=== PATIENT | female | born 1980 | race Caucasian/White ===

== ENCOUNTER 2016-12-17 10:34 | Emergency (ER) | payer BC ==
[2016-12-17 10:46] VITALS: BP 118/76
--- NOTE | 2016-12-17 12:09 | UC ---
Throat Pain/Nasal Joe HPI - HPI Summary HPI Summary: THREE DAYS OF FEVER, CHILLS, CONGESTION, EAR ACHE. - History of Current Complaint Chief Complaint: UCGeneralIllness Stated Complaint: FLU COMPLAINT Time Seen by Provider: 12/17/16 10:59 Hx Obtained From: Patient Hx Last Menstrual Period: 12/12/16 Onset/Duration: Gradual Onset, Lasting Days, Still Present Severity: Moderate Cough: Nonproductive Associated Signs & Symptoms: Positive: Hoarseness, Sinus Discomfort, Nasal Discharge, Fever - Epiglottits Risk Factors Epiglottis Risk Factors: Negative - Allergies/Home Medications Allergies/Adverse Reactions: Allergies Allergy/AdvReac Type Severity Reaction Status Date / Time Nitrofurantoin Allergy Severe Hives Verified 06/04/15 18:46 [From Macrodantin] Penicillins Allergy Severe Hives Verified 06/04/15 18:46 Hydrocodone AdvReac Mild Itching Verified 06/04/15 18:46 CILLINS Allergy Unknown Hives Uncoded 06/04/15 18:46 Home Medications: Home Medications Dextromethorphan-Phenylephrine [Day Time Multi-Symptom Co 10-5-325 mg] [History] PMH/Surg Hx/FS Hx/Imm Hx Previously Healthy: Yes Endocrine History Of: Denies: Diabetes, Thyroid Disease Cardiovascular History Of: Denies: Cardiac Disorders, Hypertension, Pacemaker/ICD, Congestive Heart Failure Respiratory History Of: Denies: COPD, Asthma GI/ History Of: Denies: Ulcer, Renal Disease Neurological History Of: Reports: Seizures - 2000, from taking too many caffeine pills Denies: TIA, CVA, Dementia, Migraine Psychological History Of: Denies: Anxiety, Depression - Surgical History Surgical History: Yes Surgery Procedure, Year, and Place: RIGHT SHOULDER 2008, PINS PLACEMENT TO R ARM , REMOVED 07/15/2010, APPENDECTOMY 11/14/12,. R hemicolectomy 11/06. TONSILECTOMY/ADENOIDS 1990 - Family History Known Family History: Positive: None Negative: Respiratory Disease - Social History Occupation: Employed Full-time Lives: With Family Alcohol Use: None Substance Use Type: Marijuana Substance Use Comment - Amount & Last Used: every now and then Smoking Status (MU): Heavy Every Day Tobacco Smoker Type: Cigarettes Amount Used/How Often: 1/2 ppd Have You Smoked in the Last Year: Yes Household Exposure Type: Cigarettes Cessation Counseling: Patient Advised to Stop - Immunization History Most Recent Influenza Vaccination: 06/2016 Most Recent Tetanus Shot: 3 YEAR S AGO Most Recent Pneumonia Vaccination: NEVER Review of Systems Constitutional: Fever, Chills, Fatigue Skin: Negative Eyes: Negative ENT: Ear Ache, Nasal Discharge Respiratory: Cough Cardiovascular: Negative Gastrointestinal: Negative Genitourinary: Negative Motor: Negative Neurovascular: Negative Musculoskeletal: Myalgia Neurological: Negative Psychological: Negative All Other Systems Reviewed And Are Negative: Yes Physical Exam Triage Information Reviewed: Yes Appearance: No Pain Distress, Well-Nourished, Ill-Appearing - MODERATELY Vital Signs: Initial Vital Signs Temp 97.6 F 12/17/16 10:39 Pulse 107 12/17/16 10:39 Resp 18 12/17/16 10:39 BP 118/76 12/17/16 10:39 Pulse Ox 99 12/17/16 10:39 Vital Signs Reviewed: Yes Eye Exam: Normal ENT: Positive: Hearing grossly normal, Pharynx normal, Nasal congestion, Nasal drainage, TM bulging, TM dull, TM red Dental Exam: Normal Neck exam: Normal Neck: Positive: Supple, Nontender, No Lymphadenopathy Respiratory Exam: Normal Respiratory: Positive: Chest non-tender, Lungs clear, Normal breath sounds, No respiratory distress, No accessory muscle use Cardiovascular Exam: Normal Cardiovascular: Positive: RRR, No Murmur, Pulses Normal Abdominal Exam: Normal Abdomen Description: Positive: Nontender, No Organomegaly Musculoskeletal Exam: Normal Neurological Exam: Normal Psychological Exam: Normal Psychological: Positive: Normal Response To Family Skin Exam: Normal Throat Pain/Nasal Course/Dx - Differential Dx/Diagnosis Differential Diagnosis/HQI/PQRI: Pharyngitis, Sinusitis, Tonsillitis, URI Provider Diagnoses: SINUSITIS. RIGHT OTITIS MEDIA. LEFT OTALGIA Discharge - Discharge Plan Condition: Stable Disposition: HOME Prescriptions: Azithromycin TAB* [Zithromax TAB (Z-AMERICO) 250 mg #6 tabs] 250 mg PO DAILY #6 tab Patient Education Materials: Sinusitis (ED) Forms: *Work Release Referrals: Scarlett Colvin MD [Primary Care Provider] -
== END 2016-12-17 12:07 | disposition home or self-care (01) ==
LOC: UCEAST 10:34
DX: J32.9 Chronic sinusitis, unspecified (principal); H66.91 Otitis media, unspecified, right ear; H92.02 Otalgia, left ear; Z88.5 Allergy status to narcotic agent; Z88.0 Allergy status to penicillin; F17.210 Nicotine dependence, cigarettes, uncomplicated; F12.90 Cannabis use, unspecified, uncomplicated; M79.1 Myalgia
CPT/HCPCS: 87502; 99212; G0463

== ENCOUNTER 2017-03-12 17:42 | Emergency (ER) | payer BC ==
[2017-03-12 18:19] VITALS: BP 115/74
--- NOTE | 2017-03-12 20:14 | RAD ---
INDICATION: Right knee pain COMPARISON: June 04, 2015 TECHNIQUE: AP, stable lateral, tunnel, and sunrise views were obtained. FINDINGS: The bony structures, joint spaces, and soft tissues are normal for age. IMPRESSION: NEGATIVE EXAMINATION.
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
== END 2017-03-12 20:41 | disposition home or self-care (01) ==
LOC: ED 17:42
DX: M25.561 Pain in right knee (principal); Z88.1 Allergy status to other antibiotic agents; Z88.5 Allergy status to narcotic agent; Z88.0 Allergy status to penicillin; K21.9 Gastro-esophageal reflux disease without esophagitis; R56.9 Unspecified convulsions; Z85.038 Personal history of other malignant neoplasm of large intestine; F12.90 Cannabis use, unspecified, uncomplicated; F17.210 Nicotine dependence, cigarettes, uncomplicated
CPT/HCPCS: 99282

== ENCOUNTER 2019-04-13 16:30 | Emergency (ER) | payer BC, OTHER ==
[2019-04-13 16:46] VITALS: BP 111/74
--- NOTE | 2019-04-13 17:07 | UC ---
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 no LOC. c/o "goose egg" on back of head and headache. denies neck pain. - History Of Current Complaint Chief Complaint: UCHeadInjury Stated Complaint: head injury Time Seen by Provider: 04/13/19 16:41 Hx Obtained From: Patient Hx Last Menstrual Period: [id number] ?: No Onset/Duration: Sudden Onset Severity Currently: Moderate Severity Initially: Moderate Pain Intensity: 7 Aggravating Factor(s): Nothing Associated Signs And Symptoms: Negative: Confusion, Memory Loss, Neck Pain, Nausea - Allergies/Home Medications Allergies/Adverse Reactions: Allergies Allergy/AdvReac Type Severity Reaction Status Date / Time hydrocodone Allergy Itching Verified 04/13/19 16:48 nitrofurantoin Allergy Hives Verified 04/13/19 16:48 [From Macrodantin] Penicillins Allergy Hives Verified 04/13/19 16:48 Home Medications: Home Medications NK [No Home Medications Reported] 04/13/19 [History Confirmed 04/13/19] PMH/Surg Hx/FS Hx/Imm Hx Previously Healthy: Yes Neurological History: Other - history TBI 1999 - Surgical History Surgical History: Yes Surgery Procedure, Year, and Place: RIGHT SHOULDER 2008, PINS PLACEMENT TO R ARM , REMOVED 07/15/2010, APPENDECTOMY 11/14/12,. R hemicolectomy 11/06. TONSILECTOMY/ADENOIDS 1990 - Family History Known Family History: Positive: None Negative: Respiratory Disease - Social History Occupation: Employed Full-time Lives: With Family Alcohol Use: Occasionally Substance Use Type: Marijuana Substance Use Comment - Amount & Last Used: every now and then Smoking Status (MU): Light Every Day Tobacco Smoker Type: Cigarettes Amount Used/How Often: 1/2 ppd Have You Smoked in the Last Year: Yes Household Exposure Type: Cigarettes Cessation Counseling: Patient Advised to Stop - Immunization History Most Recent Influenza Vaccination: 06/2016 Most Recent Tetanus Shot: 3 YEAR S AGO Most Recent Pneumonia Vaccination: NEVER Review of Systems All Other Systems Reviewed And Are Negative: Yes Constitutional: Positive: Negative Skin: Positive: Negative Respiratory: Positive: Negative Cardiovascular: Positive: Negative Musculoskeletal: Positive: Negative Neurological: Positive: Headache Is Patient Immunocompromised?: No Physical Exam Triage Information Reviewed: Yes Appearance: Well-Appearing, No Pain Distress, Well-Nourished Vital Signs: Initial Vital Signs Temp 97.8 F 04/13/19 16:39 Pulse 74 04/13/19 16:39 Resp 16 04/13/19 16:39 BP 111/74 04/13/19 16:39 Pulse Ox 98 04/13/19 16:39 Vital Signs Reviewed: Yes Eye Exam: Normal Eyes: Positive: Conjunctiva Clear Neck exam: Normal Neck: Positive: Supple, Nontender Respiratory Exam: Normal Respiratory: Positive: Lungs clear Cardiovascular Exam: Normal Cardiovascular: Positive: RRR Musculoskeletal Exam: Normal Musculoskeletal: Positive: Strength Intact, ROM Intact Neurological Exam: Normal Neurological: Positive: Alert, Other: - speech is srticulate, she smiles appropriately, able to explain events w/o diff. no evidence neuro deficits on exam Psychological Exam: Normal Skin Exam: Other - small contusion L posterior scalp, no skin break Head Injury Course/Dx - Differential Dx/Diagnosis Differential Diagnosis/HQI/PQRI: Cervical Sprain, Concussion With LOC, Contusion Provider Diagnosis: Scalp contusion Discharge - Sign-Out/Discharge Documenting (check all that apply): Patient Departure All imaging exams completed and their final reports reviewed: No Studies - Discharge Plan Condition: Good Disposition: HOME Patient Education Materials: Scalp Contusion in Adults (ED) Forms: *Work Release Referrals: Scarlett Colvin MD [Primary Care Provider] - 2 Days (for recheck) Additional Instructions: apply ice to scalp wound use tylenol 650mg every 6hours as needed for pain Report directly to ER if you develop signs of concussion: trouble speaking, increasing headache, blurred vision, confusion, memory problem - Billing Disposition and Condition Condition: GOOD Disposition: Home - Attestation Statements Provider Attestation: Per institutional requirements, I have reviewed the chart, however, I was not consulted specifically or made aware of this patient by the midlevel provider. I did not personally evaluate, interact with , or disposition this patient.
== END 2019-04-13 17:20 | disposition home or self-care (01) ==
LOC: UCEAST 16:30
DX: S00.03XA Contusion of scalp, initial encounter (principal); W22.8XXA Striking against or struck by other objects, initial encounter; Y93.G3 Activity, cooking and baking; Y92.010 Kitchen of single-family (private) house as the place of occurrence of the external cause; Y99.8 Other external cause status; F17.210 Nicotine dependence, cigarettes, uncomplicated; Z88.0 Allergy status to penicillin
CPT/HCPCS: 99211; G0463

== ENCOUNTER 2021-05-09 05:57 | Observation (INO) ==
[~2021-05-09 05:57] MED LIST: Buffered Lidocaine 1% SYRIN 1 ml INTRADERM ONE; DiMENhydriNATE IV 50 mg/ml 1 ml VIAL IV PUSH ONE; HYDROcodone/ACETAMIN 5/325 mg TAB PO PRN; Lactated Ringers 1000 ml BAG 1,000 ML IV SCH; Metoclopramide 5 MG/ML VIAL (10 mg) IV PRN; Naloxone 0.4 mg VIAL 0.4 mg/ml 1 ml VIAL IV PRN; Ondansetron 4 mg VIAL 2 MG/ML 2 ml VIAL IV PRN
[2021-05-09] MEDS ORDERED: Buffered Lidocaine 1% SYRIN 1 ml INTRADERM ONE (06:20)
[2021-05-09] MEDS ORDERED: Clindamycin 900 MG/D5W BAG 900 MG/50 ML BAG IVPB ONE (06:20)
[2021-05-09] MEDS ORDERED: DiMENhydriNATE IV 50 mg/ml 1 ml VIAL ONE (06:20)
[2021-05-09] MEDS ORDERED: Sevoflurane BOTTLE ONE (06:56)
[2021-05-09] MEDS ORDERED: fentaNYL 250 mcg/5 ml 50 MCG/ML 5 ml VIAL (250 MCG) ONE (06:56)
[2021-05-09] MEDS ORDERED: Dexamethasone IV 4 MG/ML VIAL 1 ml VIAL ONE (06:56)
[2021-05-09] MEDS ORDERED: Midazolam 2 mg/2 ml VIAL 1 mg/ml 2 ml VIAL (2 mg) ONE (06:56)
[2021-05-09] MEDS ORDERED: Propofol 10 MG/ML 20 ML BTL ONE (06:56)
[2021-05-09] MEDS ORDERED: Rocuronium 50 mg VIAL 10 mg/ml 5 ml VIAL (50 mg) ONE ×2 (06:56→09:13)
[2021-05-09] MEDS ORDERED: Ondansetron 4 mg VIAL 2 MG/ML 2 ml VIAL ONE (06:56)
[2021-05-09] MEDS ORDERED: Lidocaine 2% PF 5 ML VIAL ONE (06:56)
[2021-05-09] MEDS ORDERED: Bupivacaine 0.25% SDV 30 ML ONE ×2 (07:17→08:58)
[2021-05-09] MEDS ORDERED: HYDROmorphone 1 MG/1 ML SYRINGE ONE ×2 (09:31→12:06)
[2021-05-09] MEDS ORDERED: Labetalol IV 5 MG/ML 20 ml VIAL ONE (10:41)
[2021-05-09] MEDS ORDERED: Nicotine GUM 2MG FRUIT FLAVOR PO PRN (12:49)
[2021-05-09] MEDS ORDERED: HYDROmorphone 0.5 MG/0.5 ML SYRINGE IV SLOW PU PRN (12:51)
[2021-05-09] MEDS ORDERED: diPHENhydraMINE IV 50 MG/ML 1 ml VIAL (BENADRYL) IV PRN (12:51)
[2021-05-09] MEDS ORDERED: Ondansetron 4 mg VIAL 2 MG/ML 2 ml VIAL IV PRN (12:53)
[2021-05-09] MEDS ORDERED: fentaNYL 100 mcg/2 ml 50 MCG/ML VIAL ONE (13:24)
[2021-05-09] MEDS: fentaNYL 100 mcg/2 ml 50 MCG/ML VIAL IV PRN ×2 (13:25→13:48)
[2021-05-09] MEDS: Lactated Ringers 1000 ml BAG 1,000 ML IV SCH (14:45)
[2021-05-10] MEDS: Lactated Ringers 1000 ml BAG 1,000 ML IV SCH (00:19)
[2021-05-10 11:24] VITALS: BP 129/67
[2021-05-12 12:40] LABS: Case Number CR-21-52328
== END 2021-05-10 14:35 | disposition home or self-care (01) ==
LOC: SSU 05:57 → OR 05:57 → EDSTATUS 09:45
PROVIDERS: ADMIT Surgery; ATTEND Surgery